=== PATIENT | female | born 1990 | race Caucasian/White ===

== ENCOUNTER 2023-03-12 15:21 | Emergency (ER) | payer BC ==
[~2023-03-12] VITALS: Ht 162.6 cm; Wt 79.4 kg
[2023-03-12 16:02] LABS: BILIRUBIN,URINE NEGATIVE (Neg); CLARITY,URINE SLIGHTLY CLOUDY (Clear); COLOR,URINE YELLOW (Yellow); GLUCOSE, URINE NEGATIVE (Neg); KETONES,URINE 15 mg/dl (Neg); LEUKOCYTE ESTERASE ,URINE NEGATIVE (Neg); NITRITES, URINE NEGATIVE (Neg); OCCULT BLOOD,URINE NEGATIVE (Neg); PROTEIN,URINE NEGATIVE (Neg); UROBILINOGEN,URINE 0.2 E.U/dL (0.2-1.0)
[2023-03-12] MEDS ORDERED: acetaminophen 325mg tablet PO ONE ×2 (16:10→16:20)
[2023-03-12 16:22] LABS: UA COLLECTION TYPE CLN CATCH MIDSTREAM
[2023-03-12 16:23] LABS: BACTERIA,URINE FEW /HPF (Neg); MUCUS STRANDS FEW /LPF (Neg); RBC,URINE 0-2 /HPF (0-2); SQUAMOUS EPITHELIAL CELL,UR FEW /LPF (FEW); WBC,URINE 0-4 /HPF (0-4)
[2023-03-12] MEDS ORDERED: morphine 2 MG/ML inj. syringe IM ONE (17:45)
[2023-03-12 18:07] LABS: BASOPHILS % (AUTO) 0.1 % (0-1); EOSINOPHILS # (AUTO) 0.1 X10'3 (0-0.9); EOSINOPHILS % (AUTO) 0.3 % (0-6); HEMATOCRIT 32.8 % (35.0-45.0); HEMOGLOBIN 11.2 g/dl (12.0-16.0); LYMPHOCYTES # (AUTO) 2.4 X10'3 (1.1-4.8); LYMPHOCYTES % (AUTO) 14.6 % (21-51); MEAN CORPUSCULAR HGB CONC 34.2 g/dL (33.0-36.5); MEAN CORPUSCULAR VOLUME 90.7 FL (78-98); MEAN PLATELET VOLUME 6.9 FL (7.4-10.4); MONOCYTES # (AUTO) 0.9 X10'3 (0-0.9); MONOCYTES % (AUTO) 5.3 % (2-12); NEUTROPHILS # (AUTO) 13.2 X10'3 (1.8-7.7); NEUTROPHILS % (AUTO) 79.7 % (42-75); PLATELET COUNT 384 X10'3 (140-440); RED BLOOD COUNT 3.61 X10'6 (4.20-5.60); RED CELL DISTRIBUTION WIDTH 13.3 % (11.5-14.5); WHITE BLOOD COUNT 16.6 X10'3 (4.5-11.0)
[2023-03-12 18:17] LABS: ALANINE AMINOTRANSFERASE 58 U/L (12-78); ALBUMIN 2.6 G/DL (3.4-5.0); ALBUMIN/GLOBULIN RATIO 0.7 (1.1-1.5); ALKALINE PHOSPHATASE 90 IU/L (46-116); ANION GAP 11 (8-16); ASPARTATE AMINO TRANSFERASE 31 U/L (10-37); BILIRUBIN,TOTAL 0.4 MG/DL (0.1-1.0); BLOOD UREA NITROGEN 4 MG/DL (7-18); BUN/CREATININE RATIO 8.3 (10.0-20.0); CALCIUM 8.8 MG/DL (8.5-10.1); CHLORIDE 103 MMOL/L (99-107); CREATININE 0.48 MG/DL (0.40-0.90); GLUCOSE 89 MG/DL (70-104); POTASSIUM 3.6 MMOL/L (3.5-5.1); SODIUM 135 MMOL/L (135-145); TOTAL CARBON DIOXIDE 21.1 MMOL/L (24-32); TOTAL PROTEIN 6.3 G/DL (6.4-8.2); eCRCL 147 ML/MIN; eGFR > 90 ML/MIN
[2023-03-12 19:28] VITALS: BP 123/65; PULSE 99; RESP 16; TEMP 98; O2SAT 98
== END 2023-03-12 19:30 | disposition home or self-care (01) ==
LOC: ER 15:22
DX: O26.892 Other specified pregnancy related conditions, second trimester (principal); R10.9 Unspecified abdominal pain
CPT/HCPCS: 36415; 76770; 80053; 81001; 85025; 96372; 99285; J2270

== ENCOUNTER 2024-08-24 19:09 | Emergency (ER) | payer BC ==
[~2024-08-24] VITALS: Ht 162.6 cm; Wt 67.8 kg
[2024-08-24 19:57] LABS: MEAN PLATELET VOLUME 6.7 FL (7.4-10.4); RED CELL DISTRIBUTION WIDTH 13.0 % (11.5-14.5)
--- NOTE | 2024-08-24 20:02 | Physician Documentation ---
History of Present Illness Chief Complaint: Abdominal Pain Stated Complaint: ABD PAIN OK to notify your PCP?: Yes Primary Medical Doctor: [facility] Source: patient Mode of Arrival: POV Exam Limitations: no limitations HPI 33-year-old female presents with bloating and sharp shooting pain in the right upper quadrant which was worse after eating. She is also complaining of feeling nauseated and having diarrhea. She still has her gallbladder. History as above. Patient took some tramadol for her pain without relief. No prior instances Medication Reconciliation Allergies: Coded Allergies: No Known Allergies (Unverified , 03/12/23) Review of Systems All Other Systems at this time: Reviewed and Negative ROS All review of systems negative except as per HPI Physical Exam Vital Signs: RN Vital Signs have been reviewed: Yes, Temperature: 97.2, Source: Temporal, Heart Rate: 97, Respiratory Rate: 14, BP: 124/79, Pulse Oximetry: 100, Weight: 67.750 Pulse Oximetry Reflects: adequate oxygenation Physical Exam General: Patient is awake, alert, oriented x4 in no acute distress Head: Normocephalic and atraumatic. Eyes: Conjunctival normal. EOMI. PERRL. ENT: Mucous membranes moist. Neck: Supple, trachea is midline. Chest: Clear to auscultation bilaterally without rales, rhonchi, or wheezes. There is no accessory muscle use or retractions. Cardiac: RRR without murmurs, gallops, or rubs. Abd: Soft, Nondistended. Soft abdomen. Right upper quadrant tenderness to palpation, no guarding or rebound tenderness. Progress Results/Orders Results/Orders Orders - HARJIT MARION Urinalysis, Cult If Indicated (08/24/24 19:30) Hcg, Ur Ql (08/24/24 19:30) BMP (08/24/24 19:30) Lipase (08/24/24 19:30) CMP (08/24/24 19:30) Ct Abdomen (08/24/24 19:33) Completed Orders - HARJIT MARION Cbc/Diff (08/24/24 19:30) Vital Signs 08/24/24 19:23 Temp 97.2 Pulse 97 Resp 14 B/P (MAP) 124/79 Pulse Ox 100 Laboratory Tests Test 08/24/24 19:46 White Blood Count 6.2 Red Blood Count 4.56 Hemoglobin 13.7 Hematocrit 40.3 Mean Corpuscular Volume 88.4 Mean Corpuscular Hemoglobin 29.9 Mean Corpuscular Hemoglobin Concent 33.9 Red Cell Distribution Width 13.0 Platelet Count 647 H Mean Platelet Volume 6.7 L Neutrophils (%) (Auto) 49.7 Lymphocytes (%) (Auto) 37.3 Monocytes (%) (Auto) 9.9 Eosinophils (%) (Auto) 2.5 Basophils (%) (Auto) 0.6 Neutrophils # (Auto) 3.1 Lymphocytes # (Auto) 2.3 Monocytes # (Auto) 0.6 Eosinophils # (Auto) 0.2 Basophils # (Auto) 0.0 CBC Comment Chemistry Comments Medical Decision Making Findings Patient is feeling better. Patient presented to the emergency room for evaluation of abdominal pain as per HPI. Differentials include but are not limited to cholecystitis pancreatitis diverticulitis pancreatitis gastritis constipation small-bowel obstruction kidney stone therefore emergent labs and imaging indicated. Both ultrasound and CT scan negative for acute process although CT scan did show abundance of stool. Patient has responding to therapy. Labs reassuring. Departure Disposition: HOME / SELF CARE / HOMELESS Impression: Primary Impression: Abdominal pain Condition: Improved Discharge Instructions: Abdominal Pain (Nonspecific) Additional Instructions: CT scan did show abundance of stool in your colon. Possible constipation. [id number] constipation medications may help. Referrals: NO PRIMARY CARE PROVIDER (PCP) Prescriptions Ondansetron 8mg ODT (Ondansetron Odt) 8 Mg Tab.rapdis 1 TAB PO Q6H for nausea/vomiting for 3 Days, #12 TAB 0 Refills Prov: TARIK SHAFFER MD 08/25/24 Hydrocodone Bit/Acetaminophen 5/325 MG ([place] 5/325 MG) 5 Mg/325 Mg Tablet 1-2 TAB PO Q4-6 hours PRN for pain, #10 TAB Prov: TARIK SHAFFER MD 08/25/24 Education Educated: Patient Additional Comment Medical Screen Exam This patient recieved a medical screening examination. After reviewing the individual's medical complaints with presenting symptoms and performing an appropriate physical examination, it was determined that no immediate life- threatening emergency medical condition is present. This individual is also not a women having contractions. Signature Scribe Signature: No scribe Attestation: The note accurately reflects work and decisions made by me.Tarik Shaffer MD 08/25/24 03:39 HARJIT MARION [facility] Aug 24, 2024 20:02 TARIK SHAFFER MD Aug 24, 2024 21:53
[2024-08-24 20:23] LABS: CREATININE 0.81 MG/DL (0.40-0.90); TOTAL CARBON DIOXIDE 27.4 MMOL/L (24-32); eCRCL 86 ML/MIN; eGFR 82 ML/MIN
[2024-08-24 21:47] LABS: LEUKOCYTE ESTERASE ,URINE NEGATIVE (Neg); NITRITES, URINE NEGATIVE (Neg); OCCULT BLOOD,URINE NEGATIVE (Neg)
[2024-08-24 21:49] LABS: URINE HCG NEGATIVE (NEG)
[2024-08-24 21:51] LABS: UA COLLECTION TYPE CLN CATCH MIDSTREAM
[2024-08-24] MEDS: ondansetron 4mg rapidly disintigrating tab PO ONE (21:58)
[2024-08-24] MEDS: HYDROcodone/acetaminophen 5mg/325mg tablet PO ONE (21:58)
[2024-08-24] MEDS: ketorolac trometh 15mg/ml vial 15 MG/ML ML IV ONE (23:40)
--- NOTE | 2024-08-25 00:03 | RADIOLOGY REPORT ---
Exam: CT CT ABDOMEN PELVIS History: RUQ pain, nausea, worse after eating. r/o gallstones COMPARISON: None Technique: Multidetector spiral CT of the abdomen and pelvis was performed from lung bases to pubic s ymphysis. Intravenous contrast was administered during this examination. Portal venous imaging was o btained. Axial, coronal and sagittal multiplanar reformats were performed by the technologist on a [employer] workstation. Radiation Dose : 1. Abdomen/Pelvis: CTDIvol 14.25 mGy, DLP 740.74 mGy*cm. CONTRAST: Type of contrast: Omnipaque 300 Contrast injected: 100 ml Findings: Lung Bases: No acute or significant lung base finding. Normal heart size. No pleural or pericardial effusion. Liver: The liver is normal in size. No focal lesions. Normal hepatic vascular enhancement. Gallbladder and Biliary Tree: Unremarkable Spleen: Unremarkable Pancreas: The pancreas is normal in appearance without focal lesions or abnormal enhancement. Adrenal Glands: Unremarkable Kidneys: No hydronephrosis. Bladder: Unremarkable Bowel: The stomach is grossly normal in appearance. Retained stool throughout the colon. Small bowel and colon are otherwise normal in caliber and distribution. The appendix is not visualized; however, no secondary findings of acute appendicitis identified. Ascites: Absent Lymphadenopathy: No mesenteric, retroperitoneal or periportal lymphadenopathy. Retroperitoneal surgic al clips noted. Abdominal Wall and Mesentery: Unremarkable. Vasculature: The visualized abdominal aorta is normal in size and caliber. Abdominal and pelvic vess els demonstrate normal enhancement. Pelvic Organs: Unremarkable. Tampon noted. Musculoskeletal: No aggressive focal bony lesions, acute fractures or dislocation. IMPRESSION: 1. No acute abdominal or pelvic finding. 2. Retained colonic stool. Radiation optimization: All CT scans at this facility use at least one of these dose optimization mina hniques: automated exposure control mA and/or kV adjustment per patient size (includes targeted exam s where dose is matched to clinical indication) or iterative reconstruction.
[2024-08-25] MEDS: HYDROcodone/acetaminophen 10/325mg tab PO ONE (00:30)
[2024-08-25] MEDS ORDERED: HYDR-3965 PO (03:39)
[2024-08-25] MEDS ORDERED: ONDA-245 PO (03:39)
--- NOTE | 2024-08-25 03:39 | RADIOLOGY REPORT ---
INDICATION: ruq pain TECHNIQUE: Multiple real-time sonographic images were obtained of the right upper quadrant. COMPARISON: None FINDINGS: The liver demonstrates normal homogeneous echotexture without focal mass lesions. The liver measures 15.5 cm. Normal hepatopetal portal flow identified. No evidence of pleural effusion or abd ominal ascites. There is no intrahepatic or extrahepatic ductal dilatation. The common duct measures 0.3 cm. The gallbladder is moderately distended and otherwise without evidence of stone or sludge. The gallbl adder wall measures 0.3 cm and is within normal limits. Negative sonographic locke's sign. The right kidney measures 11.0 cm. The right kidney is normal in contour, size, and shape. The echoge nicity is normal. There is no hydronephrosis. The pancreas is not well visualized due to overlying bowel gas. IMPRESSION: 1. Gallbladder distention. Otherwise, unremarkable right upper quadrant sonogram.
[2024-08-25 03:43] VITALS: BP 111/67; PULSE 96; RESP 19; TEMP 97.2; O2SAT 100
== END 2024-08-25 03:49 | disposition home or self-care (01) ==
LOC: ER 19:09
DX: R10.11 Right upper quadrant pain (principal); R11.0 Nausea; R19.7 Diarrhea, unspecified
CPT/HCPCS: 74177; 76700; 80053; 81003; 81025; 83690; 85025; 96374; 99285; J1885